=== PATIENT | female | born 1970 | race Caucasian/White ===

== ENCOUNTER 2018-02-20 14:05 | Outpatient (CLI) | payer OTHER ==
--- NOTE | 2018-02-20 17:45 | XRAY Report ---
RIGHT HAND, TWO VIEWS: 02/20/2018 HISTORY: Pain. FINDINGS: Two views of the right hand show no evidence of fracture, malalignment, soft tissue foreign body, significant degenerative change, bone erosion or other finding. IMPRESSION: NEGATIVE TWO VIEW RIGHT HAND. TD: 02/20/2018 17:44
--- NOTE | 2018-02-20 17:46 | XRAY Report ---
RIGHT SHOULDER: 02/20/2018 HISTORY: Pain. COMPARISON: None. FINDINGS: Three views of the right shoulder show no evidence of fracture, malalignment, soft tissue calcification or bone destruction. Included portions of the right lung are clear. IMPRESSION: NEGATIVE THREE VIEW RIGHT SHOULDER. TD: 02/20/2018 17:46
--- NOTE | 2018-02-20 17:48 | XRAY Report ---
RIGHT FOREARM: 02/20/2018 HISTORY: Pain. COMPARISON: None. FINDINGS: Two views of the right forearm show no evidence of fracture, periosteal reaction, bone destruction, radiopaque foreign body, or other abnormality. IMPRESSION: NEGATIVE TWO VIEW RIGHT FOREARM. TD: 02/20/2018 17:47
== END 2018-02-20 14:06 | disposition home or self-care (01) ==
LOC: DI.N 14:05
PROVIDERS: ATTEND Nurse Practitioner Gerontology
DX: M25.511 Pain in right shoulder (principal); M79.631 Pain in right forearm; M79.641 Pain in right hand